=== PATIENT | male | born 1980 ===

== ENCOUNTER 2021-01-01 11:43 | Emergency (ER) | payer OTHER ==
[~2021-01-01] VITALS: Ht 177.8 cm; Wt 90.7 kg
== END 2021-01-01 13:04 | disposition home or self-care (01) ==
LOC: ER 11:43
DX: S80.02XA Contusion of left knee, initial encounter (principal); V89.2XXA Person injured in unspecified motor-vehicle accident, traffic, initial encounter
CPT/HCPCS: 73140; 73560-LT; 90471; 90714; 99283-25; A9270